=== PATIENT | female | born 1950 | race Caucasian/White ===

== ENCOUNTER 2017-09-19 06:46 | Day surgery (SDC) | payer MEDICARE, BC ==
[2017-09-19 06:59] VITALS: TEMP 96.7
[2017-09-19] MEDS ORDERED: PROPOFOL 500 MG/50 ML EMU IV ONE (07:07)
[2017-09-19] MEDS ORDERED: LIDOCAINE HCL 1% MPF SOL ONE (07:07)
[2017-09-19 09:27] VITALS: BP 127/86; PULSE 69; RESP 20; O2SAT 97
== END 2017-09-19 09:58 | disposition home or self-care (01) | DRG 951 ==
LOC: SURG 06:46
PROVIDERS: ATTEND Internal Medicine Gastroenterology
DX: Z12.11 Encounter for screening for malignant neoplasm of colon (principal); D12.0 Benign neoplasm of cecum; Z80.0 Family history of malignant neoplasm of digestive organs; K64.8 Other hemorrhoids
CPT/HCPCS: J2001; J2704

== ENCOUNTER 2017-12-26 08:39 | Day surgery (SDC) | payer MEDICARE, BC ==
[~2017-12-26 08:39] MED LIST: LIDOCAINE HCL 1% MPF SOL ONE; PROPOFOL 500 MG/50 ML EMU IV ONE
[2017-12-26 10:36] VITALS: TEMP 97.9
[2017-12-26 11:01] VITALS: RESP 20
[2017-12-26 11:10] VITALS: BP 140/81; PULSE 66; O2SAT 99
== END 2017-12-26 11:25 | disposition home or self-care (01) | DRG 951 ==
LOC: SURG 08:39
PROVIDERS: ATTEND Internal Medicine Gastroenterology
DX: Z86.018 Personal history of other benign neoplasm (principal); D12.0 Benign neoplasm of cecum; K64.4 Residual hemorrhoidal skin tags; K63.5 Polyp of colon
CPT/HCPCS: J2001; J2704

== ENCOUNTER 2019-02-05 06:53 | Day surgery (SDC) | payer BC, MEDICARE ==
[2019-02-05] MEDS ORDERED: LIDOCAINE HCL 1% MPF 30 SOL ONE (07:35)
[2019-02-05] MEDS ORDERED: PROPOFOL 500 MG/50 ML EMU IV ONE (07:35)
[2019-02-05 09:13] VITALS: RESP 16
[2019-02-05 09:20] VITALS: BP 112/76; PULSE 83; TEMP 98.2; O2SAT 95
== END 2019-02-05 09:54 | disposition home or self-care (01) | DRG 951 ==
LOC: SURG 06:53
PROVIDERS: ATTEND Internal Medicine Gastroenterology
DX: Z86.010 Personal history of colon polyps (principal); K64.4 Residual hemorrhoidal skin tags; D12.0 Benign neoplasm of cecum
CPT/HCPCS: J2001; J2704